=== PATIENT | female | born 1965 | race Caucasian/White ===

== ENCOUNTER 2020-07-10 10:14 | Outpatient (CLI) | payer OTHER, SELFPAY ==
--- NOTE | ~2020-07-10 | XR_ITS ---
EXAMINATION: XR hand BI arthritis min 3V, XR wrist RT min 3V, XR wrist LT min 3V EXAM DATE: 07/10/2020 10:40 INDICATION: Rheumatoid arthritis. TECHNIQUE: 1. Right hand frontal, lateral and oblique projections obtained and reviewed. Left hand frontal, la teral and oblique projections obtained and reviewed. Catchers projection of both hands. 2. Right wrist frontal, frontal with ulnar deviation, oblique and lateral projections obtained and r eviewed. 3. Left wrist frontal, frontal with ulnar deviation, oblique and lateral projections obtained and re viewed. There is no prior study for comparison. FINDINGS: Right hand and wrist: There is severe loss of the 1st-4th metacarpal phalangeal joints with secondary superimposed bony productive changes. Lateral subluxation and angulation at these joints. The 5th fi nger is completely laterally dislocated with proximal retraction, chronic erosion of the articular quick rfaces of the MCP joint. Complete loss of the radiocarpal joint space with large radial erosion (coul d be subchondral cysts) and smaller scaphoid erosions. Other smaller carpal erosions identified, and at the bases of the 2nd, 4th and 5th metacarpal bones. Appearance is consistent with advanced rheumat oid arthritis with superimposed secondary osteoarthritis. Mildly wide scapholunate joint space, proba karthik partial dissociation. Left hand and wrist: Similar appearance to the MCP joints, subluxations, widened scapholunate joint s pace and loss of the radiocarpal joint space, consistent with rheumatoid arthritis. There are fewer p eriarticular osseous erosions identified and only mild bony productive changes, secondary osteoarthri tis on this hand which is less affected. IMPRESSION: 1. Subluxations, joint space loss, erosions consistent with rheumatoid arthritis. 2. Right hand advanced superimposed secondary osteoarthritis. 3. At least partial scapholunate dissociation bilaterally. Reviewed, dictated and finalized at location B. OUT MANAGER IMPRESSION: 1. Subluxations, joint space loss, erosions consistent with rheumatoid arthrit is. 2. Right hand advanced superimposed secondary osteoarthritis. 3. At least partial scapholunate dissociation bilaterally. IMPRESSION: 1. Subluxations, joint space loss, erosions consistent with rheumatoid arthrit is. 2. Right hand advanced superimposed secondary osteoarthritis. 3. At least partial scapholunate dissociation bilaterally.
== END 2020-07-10 10:15 | disposition home or self-care (01) ==
LOC: ANHIMG 10:18
PROVIDERS: PCP Family Medicine; Visit Provider Plastic Surgery
DX: M06.342 Rheumatoid nodule, left hand (principal); M06.341 Rheumatoid nodule, right hand; M06.842 Other specified rheumatoid arthritis, left hand; M06.841 Other specified rheumatoid arthritis, right hand
CPT/HCPCS: 73110; 73130

== ENCOUNTER 2021-06-01 12:02 | Outpatient (CLI) | payer OTHER, SELFPAY ==
--- NOTE | ~2021-06-01 | CT_ITS ---
EXAMINATION: CT abdomen pelvis wo con DATE: 06/01/2021 12:33 INDICATION: Low abdominal pain. Nausea. TECHNIQUE: Computed tomography (CT) of the abdomen and pelvis was performed without intravenous contr ast. Automated exposure control and iterative reconstruction technique were employed. The dose-length product was 323.61 mGy-cm. COMPARISON: None. FINDINGS: The visualized portions of the lung bases demonstrate minimal atelectasis. Emphysema is not ed. No pleural effusion. The heart size is normal. There is subendocardial fat in lateral wall of lef t ventricle, consistent with old infarct There are coronary artery calcifications. No pericardial eff usion. The liver, gallbladder, spleen, pancreas, adrenal glands, and kidneys are normal. There is no urolithiasis. There are no dilated loops of bowel. There are scattered diverticula in the colon. Ther e is fat stranding around a diverticulum of sigmoid colon with local bowel wall thickening, consisten t with diverticulitis. The appendix is not visualized. There is an umbilical hernia containing fat. T here are no pathologically enlarged lymph nodes. There is no free intraperitoneal fluid. There is sev ere lumbar spondylosis. IMPRESSION: 1. Acute sigmoid diverticulitis. No perforation or abscess. Reviewed, dictated and finalized at location A. TH INFORMATICS ADVISOR
[2021-06-01 12:20] LABS: Basophils Absolute Auto 0.05 K/mm3 (0.00-0.10); Basophils Percent Auto 0.6 % (0.0-1.0); Eosinophils Absolute Auto 0.07 K/mm3 (0.02-0.50); Eosinophils Percent Auto 0.8 % (1.0-6.0); Hematocrit 40.4 % (35.0-49.0); Hemoglobin 12.6 g/dL (12.0-15.0); Immature Granulocyte Absolute 0.03 K/mm3 (0.00-0.00); Immature Granulocyte Percent A 0.3 % (0.0-0.0); Lymphocytes Absolute Auto 1.97 K/mm3 (1.10-4.50); Lymphocytes Percent Auto 22.5 % (18.0-42.0); Mean Corpuscular HGB Conc 31.2 g/dL (32.0-36.0); Mean Corpuscular Hemoglobin 26.6 pg (27.0-31.0); Mean Corpuscular Volume 85.4 fL (78.0-102.0); Mean Platelet Volume 10.5 fl (9.2-11.8); Monocytes Absolute Auto 0.87 K/mm3 (0.10-0.90); Monocytes Percent Auto 9.9 % (2.0-11.0); Neutrophils Absolute Auto 5.8 K/mm3 (1.7-7.2); Neutrophils Percent Auto 65.9 % (50.0-70.0); Platelet Count Result 270 K/mm3 (150-420); Red Blood Count 4.73 M/mm3 (4.20-5.40); Red Cell Distribution Width 14.3 % (11.6-14.4); White Blood Count 8.8 K/mm3 (4.8-10.8)
[2021-06-01 12:35] LABS: Alanine Aminotransferase 21 U/L (14-59); Albumin Level 3.6 g/dL (3.4-5.0); Alkaline Phosphatase 157 U/L (46-116); Anion Gap 10 mmol/L (8-16); Aspartate Amino Transferase 11 U/L (15-37); Bilirubin,Total 0.8 mg/dL (0.00-1.00); Blood Urea Nitrogen 25 mg/dL (7-18); Calcium 9.2 mg/dL (8.5-10.1); Carbon Dioxide 28 mmol/L (21-32); Chloride 100 mmol/L (98-108); Estimated Glomerular Filt Rate > 60; Glucose 107 mg/dL (70-99); Osmolality Calculated 290 mOsm/kg (285-295); Potassium 4.2 mmol/L (3.5-5.1); Sodium 138 mmol/L (136-145); Total Protein 7.8 g/dL (6.4-8.2)
== END 2021-06-01 12:03 | disposition home or self-care (01) ==
PROVIDERS: PCP Family Medicine; Visit Provider Nurse Practitioner Family
DX: R10.9 Unspecified abdominal pain (principal)
CPT/HCPCS: 36415; 74176; 80053; 85025

== ENCOUNTER 2021-07-14 13:05 | Outpatient (CLI) | payer OTHER, SELFPAY ==
--- NOTE | ~2021-07-14 | CT_ITS ---
EXAMINATION: CT abdomen pelvis wo/w con DATE: 07/14/2021 14:02 INDICATION: Hematuria. Fever. Recurrent urinary tract infection. TECHNIQUE: Computed tomography (CT) of the abdomen and pelvis was performed without and with intraven ous contrast using a total of 130 mL Omnipaque-350 intravenous contrast with a double-bolus technique for simultaneous opacification of the renal parenchyma and renal collecting system. Automated exposu re control and iterative reconstruction technique were employed. The dose-length product was 655.26 m Gy-cm. COMPARISON: CT abdomen and pelvis 06/01/2021 FINDINGS: The visualized portions of the lung bases demonstrate mild atelectasis. No pleural effusion. There is subendocardial fat in lateral wall of left ventricle of the heart, consistent with an old infarct. N o pericardial effusion. The liver, gallbladder, spleen, pancreas, adrenal glands, and kidneys are nor mal. There is no urolithiasis. The right ureter is well opacified and is normal. The left ureter is n ot well opacified, but is normal. The bladder is not well distended. There are scattered diverticula in the colon. There is fat stranding around sigmoid colon with local bowel wall thickening, consisten t with diverticulitis. There are no dilated loops of bowel. The appendix is not visualized. There are no pathologically enlarged lymph nodes. There is no free intraperitoneal fluid. There is severe dege nerative disc disease at L3-L4. IMPRESSION: 1. Stable findings of sigmoid diverticulitis. No perforation or abscess. Reviewed, dictated and finalized at location A.
[2021-07-14 13:27] LABS: Estimated Glomerular Filt Rate > 60
== END 2021-07-14 13:06 | disposition home or self-care (01) ==
LOC: CHSIMG 13:08
PROVIDERS: PCP Family Medicine; Visit Provider Nurse Practitioner Family
DX: N39.0 Urinary tract infection, site not specified (principal)
CPT/HCPCS: 74178; Q9967

== ENCOUNTER 2021-11-10 16:51 | Outpatient (CLI) | payer OTHER, SELFPAY ==
--- NOTE | ~2021-11-10 | XR_ITS ---
EXAMINATION: XR chest 2V 11/10/2021 17:16 INDICATION: Weight loss. Covid. PROCEDURE: 2 view chest COMPARISON: No prior studies for comparison. FINDINGS: The lungs are clear. The cardiomediastinal silhouette is within normal limits. There are no pleural effusions. There is no pneumothorax suspected. The lungs are hyperinflated which is cons istent with, but not diagnostic of chronic obstructive pulmonary disease. IMPRESSION: 1: NO ACUTE CARDIOPULMONARY DISEASE. Reviewed, dictated and finalized at location A.
--- NOTE | ~2021-11-10 | XR_ITS ---
XR finger 1st LT min 2V 11/10/2021 17:16 Indication: Left first finger pain. Arthritis. Procedure: 3 views left first finger Comparison: No prior studies for comparison. Findings: There is severe osteoarthritis of the first metacarpal phalangeal joint. No fracture or tra umatic malalignment. There is dislocation at the second metacarpal phalangeal joint. Osteopenia. No e rosive changes. 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 Reviewed, dictated and finalized at location A. Impression: 1: Advanced polyarticular osteoarthritis of the first and second metacarpal pha langeal joints with dislocation at the second MCP joint.
== END 2021-11-10 16:52 | disposition home or self-care (01) ==
LOC: CHSIMG 16:53
PROVIDERS: PCP Family Medicine; Visit Provider Nurse Practitioner
DX: M06.9 Rheumatoid arthritis, unspecified (principal); R63.4 Abnormal weight loss
CPT/HCPCS: 71046; 73140

== ENCOUNTER 2021-12-29 08:36 | Outpatient (RCR) | payer OTHER, SELFPAY ==
--- NOTE | 2021-12-29 09:48 | OTOPEVAL1 ---
Evaluation Information Assessment Status Evaluation Diagnosis Left FPL rupture Onset 1-1.5 months ago Subjective Information Patient reports she was doing some gardening when she noticed pain in her left hand. She decided to take a break and then noticed the tip of her thumb was not bending. She followed up with orthopedics and they are recommending an IP joint fusion. MRI of the thumb showed the FPL tendon was too frayed for repair. They would like therapy to try an IP joint orthosis to simulate an IP joint fusion. She reports a functional decline in her ability to pick items up, particularly with a cylindrical grasp. Reported Pain Level Pain Score 0: Self Report Assessment OT Clinical Summary Suzie is a 56 year-old right handed female with RA. About a month ago she developed an insidious rupture of the FPL tendon of the left thumb. Today a dorsal based thumb splint was fabricated to position her thumb in a position of function to simulate an IP joint fusion. The IP is flexed to 30 degrees in the splint and she has improved functional social work specialist and pinch with the splint donned. She is to trial this splint until she follows up with the orthopedic surgeon to decide if she will go through with an IP fusion. Plan to have her follow up with therapy on an as needed basis for any splinting modifications PRN, 0-1x/week for 2 weeks. Plan of Care Interventions Check Out for Orthotic/Pr OT Services Indicated Yes These treatments will address the objective and functional deficits as defined above. The patient will be advanced safely and appropriately in order for the patient to progress towards his/her prior level of function. Additional exercises will be introduced and as well as a comprehensive home exercise program upon discharge, if needed, ?to ensure carryover of functional gains achieved in the clinic. This treatment plan has been reviewed and agreement upon by the patient.
--- NOTE | 2022-01-27 09:37 | OTOPDC ---
Assessment and note entered by TYRON Waldrop/Nick, CHT Evaluation Information Assessment Status Discharge Diagnosis Left FPL rupture Onset 1-1.5 months ago Subjective Information Patient reports she was doing some gardening when she noticed pain in her left hand. She decided to take a break and then noticed the tip of her thumb was not bending. She followed up with orthopedics and they are recommending an IP joint fusion. MRI of the thumb showed the FPL tendon was too frayed for repair. They would like therapy to try an IP joint orthosis to simulate an IP joint fusion. A dorsal based thumb splint was fabricated to simulate an IP joint fusion with the IP in 30 degrees of flexion. She reports improved functioanl counterintelligence analyst/pinch with the splint donned. She declined further therapy follow up and wanted to trial this splint until she followed up with MD. She has not returned for further treatment since the initial evaluation on 12/29/21. Assessment OT Clinical Summary Suzie is a 56 year-old right handed female with RA. About a month ago she developed an insidious rupture of the FPL tendon of the left thumb. Today a dorsal based thumb splint was fabricated to position her thumb in a position of function to simulate an IP joint fusion. The IP is flexed to 30 degrees in the splint and she has improved functional counterintelligence analyst and pinch with the splint donned. She is to trial this splint until she follows up with the orthopedic surgeon to decide if she will go through with an IP fusion. She has not returned for any therapy follow up needs and is going to be discharged at this time.
== END 2022-03-14 10:19 | disposition home or self-care (01) ==
LOC: ANHOT 08:36
PROVIDERS: PCP Family Medicine
DX: M79.642 Pain in left hand (principal)
CPT/HCPCS: 97165; L3933

== ENCOUNTER 2023-01-04 08:27 | Outpatient (RCR) | payer MEDICARE, MEDICAID, SELFPAY ==
--- NOTE | 2023-01-05 13:30 | OPREHPOC ---
Outpatient Therapy Plan of Care This is a Multidisciplinary Plan of Care that may contain components documented by all disciplines (PT, OT, and ST.) PT Problem 1 PT Problem #1 Knowledge Deficit PT Goal 1 Goal 1. Patient to demonstrate independence with HEP to improve progress made in PT. Target Visit 6 PT Problem 2 PT Problem #2 Impaired Strength PT Goal 1 Goal 1. Patient to improve B hip extension strength to at least 4/5 with MMT to improve her ability to squat to floor for picking up shoes. 2. Patient to improve B knee flexion/extension strength to 5/5 to improve ability to ascend stairs. Target Visit 12 PT Problem 3 PT Problem #3 Impaired Flexibility PT Goal 1 Goal 1. Patient to improve B hamstring length to lacking no more than 20 degrees to improve ability to don/doff socks and shoes. Target Visit 12 PT Problem 4 PT Problem #4 Pain PT Goal 1 Goal 1. Patient to report pain as 5/10 or less at worst with daily activities to allow for improved tolerance to perform household tasks such as vaccumming. Target Visit 12 PT Problem 5 PT Problem #5 Impaired Functional Mobil PT Goal 1 Goal 1. Patient to improve Oswestry score to 45% or less functional decline to improve ability to sleep throughout the night. 2. Patient to report ability to stand for 15 minutes while washing dishes without increasing pain. 3. Patient to ambulate 900 feet with 6 minute walk test with no rest breaks in order to improve endurance for walking around neighborhood. Target Visit 12
--- NOTE | 2023-01-05 13:31 | PTOPEVAL1 ---
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 She notes a history of RA that leads to pain throughout her body. She notes that her rhemualogist did an x-ray on the lower back, showing degnerative disc disease. She notes difficulty with standing for prologned periods of time, bending forward, walking longer distances, and performing cleaning actvities in her home. She currently does not work, but is limited with normal activities throughout the day. She has some difficulty with sleeping, having to frequently move positions throughout the night due to discomfort. She states that she has been using over the counter NSAIDs to treat the pain, but it never fully relieves discomfort. She notes she did have pain and cramping in the LEs, but says this has improved since the onset of pain. Reported Pain Level Pain Score 3: Self Report Assessment PT Clinical Summary Suzie Smith is a 57 y/o female who presents to skilled PT to address lower back pain that has increased in intensity over the past month. She demonstrates limitations in lumbar ROM, LE strength, and flexibility. Patient reports difficulty with standing for extended time periods , walking a block near her home, and cleaning tasks throughout her home. Patient currently has 66% functional decline as assessed by the Oswestry . Patient would benefit from continued skilled therapy to address ROM, strength, flexibility, gait and endurance deficits to allow for improved tolerance to perform daily activities. Plan of Care Interventions Electrical Stimulation,Gait Training,Hot Pack/Cold Pack,Manual Therapy,Neuro Re-education,Patient/ Caregiver Educati,Therapeutic Activities, Therapeutic Exercise PT Services Indicated Yes Treatment Frequency and 3x/week for 12 visits Duration These treatments will address the objective and functional deficits as defined above. The patient will be advanced safely and appropriately in order for the patient to progress towards his/her prior level of function. Additional exercises will be int
--- NOTE | 2023-02-03 09:30 | OPREHPOC ---
Outpatient Therapy Plan of Care This is a Multidisciplinary Plan of Care that may contain components documented by all disciplines (PT, OT, and ST.) PT Problem 1 PT Problem #1 Knowledge Deficit PT Goal 1 Goal 1. Patient to demonstrate independence with HEP to improve progress made in PT. Target Visit 6 Progress Met PT Problem 2 PT Problem #2 Impaired Strength PT Goal 1 Goal 1. Patient to improve B hip extension strength to at least 4/5 with MMT to improve her ability to squat to floor for picking up shoes. 2. Patient to improve B knee flexion/extension strength to 5/5 to improve ability to ascend stairs. Target Visit 12 Comment continue PT Problem 3 PT Problem #3 Impaired Flexibility PT Goal 1 Goal 1. Patient to improve B hamstring length to lacking no more than 20 degrees to improve ability to don/doff socks and shoes. Target Visit 12 Comment continue PT Problem 4 PT Problem #4 Pain PT Goal 1 Goal 1. Patient to report pain as 5/10 or less at worst with daily activities to allow for improved tolerance to perform household tasks such as vaccumming. Target Visit 12 Comment continue PT Problem 5 PT Problem #5 Impaired Functional Mobil PT Goal 1 Goal 1. Patient to improve Oswestry score to 45% or less functional decline to improve ability to sleep throughout the night. 2. Patient to report ability to stand for 15 minutes while washing dishes without increasing pain. 3. Patient to ambulate 900 feet with 6 minute walk test with no rest breaks in order to improve endurance for walking around neighborhood. Target Visit 12 Comment continue
--- NOTE | 2023-02-03 09:31 | PTOPPROG ---
Assessment and note entered by Latisha Ocampo DPT Evaluation Information Assessment Status Re-evaluation Diagnosis low back pain Onset 12/28/22 Subjective Information Patient reports pain is lower. She reports standing for long periods of time increases her pain. She reports that pain is now mostly at the low back but the hips are feeling better. Assessment PT Clinical Summary Patient has been seen for 10 visits of skilled PT with progress towards all goals. Patient demonstrates improved LE strength and HS length. She reports improvement in hip pain but continue to have low back pain. She reports that she can perform house hold tasks with less pain but reports that sitting for long periods of time increases pain. She would benefit from continued skilled PT to address remaining impairments and return to PLOF. Plan of Care Interventions Electrical Stimulation,Gait Training,Hot Pack/Cold Pack,Manual Therapy,Neuro Re-education,Patient/ Caregiver Educati,Therapeutic Activities, Therapeutic Exercise PT Services Indicated Yes Treatment Frequency and continue with remaining 2 visits Duration These treatments will address the objective and functional deficits as defined above. The patient will be advanced safely and appropriately in order for the patient to progress towards his/her prior level of function. Additional exercises will be introduced and as well as a comprehensive home exercise program upon discharge, if needed, ?to ensure carryover of functional gains achieved in the clinic. This treatment plan has been reviewed and agreement upon by the patient.
--- NOTE | 2023-02-13 09:23 | OPREHPOC ---
Outpatient Therapy Plan of Care This is a Multidisciplinary Plan of Care that may contain components documented by all disciplines (PT, OT, and ST.) PT Problem 1 PT Problem #1 Knowledge Deficit PT Goal 1 Goal 1. Patient to demonstrate independence with HEP to improve progress made in PT. Target Visit 6 Progress Met PT Problem 2 PT Problem #2 Impaired Strength PT Goal 1 Goal 1. Patient to improve B hip extension strength to at least 4/5 with MMT to improve her ability to squat to floor for picking up shoes. 2. Patient to improve B knee flexion/extension strength to 5/5 to improve ability to ascend stairs. Target Visit 12 Progress Met PT Problem 3 PT Problem #3 Impaired Flexibility PT Goal 1 Goal 1. Patient to improve B hamstring length to lacking no more than 20 degrees to improve ability to don/doff socks and shoes. Target Visit 12 Progress Met Comment . PT Problem 4 PT Problem #4 Pain PT Goal 1 Goal 1. Patient to report pain as 5/10 or less at worst with daily activities to allow for improved tolerance to perform household tasks such as vaccumming. Target Visit 12 Progress Not Met Comment 6/10 PT Problem 5 PT Problem #5 Impaired Functional Mobil PT Goal 1 Goal 1. Patient to improve Oswestry score to 45% or less functional decline to improve ability to sleep throughout the night. 2. Patient to report ability to stand for 15 minutes while washing dishes without increasing pain. 3. Patient to ambulate 900 feet with 6 minute walk test with no rest breaks in order to improve endurance for walking around neighborhood. Target Visit 12 Progress Partially Met
--- NOTE | 2023-02-13 09:24 | PTOPDC ---
Assessment and note entered by Latisha Ocampo DPT Evaluation Information Assessment Status Re-evaluation Diagnosis low back pain Onset 12/28/22 Subjective Information Patient reports that hip pain is improved but she continues to have mid line low back pain. She reports that she can walk greater distances before pain starts. She reports standing in one place increases pain. Patient reports she is independent with HEP and thinks she can continue with HEP Reported Pain Level Pain Score 2: Self Report Assessment PT Clinical Summary Suzie Smith has been seen for 12 visits of skilled PT with goals partially met. Patient demonstrates improve LE flexibility and strength. She has improved abilty to ambulate prolonged distances but continues to have low back pain with standing for extended periods of time. She is independent with HEP. She is recommended to follow up with MD regarding further imaging. Plan of Care PT Services Indicated No
== END 2023-02-13 10:16 | disposition home or self-care (01) ==
LOC: CHSPT 08:27
PROVIDERS: Visit Provider Nurse Practitioner
DX: M54.50 Low back pain, unspecified (principal)
CPT/HCPCS: 97014; 97110; 97140; 97150; 97161; 97750; G0283